=== PATIENT | male | born 1950 | race Caucasian/White ===

== ENCOUNTER 2024-12-30 10:34 | Emergency (ER) | payer OTHER ==
--- OUTSIDE RECORDS SUMMARY | 2024-12-30 10:38 | XMS REPORT | Continuity of Care Document ---
Author Name Unknown Address [address] [facility] [address] [place] [address] [facility] Address [address] [facility] [address] [place] [address] Care Team Providers Care Pitch Filler Name Role Phone KAROLINA LANG Primary Care Physician Unavailab Ryan Santamaria Attending Clinician Unavailable Warren Briggs MD Attending Clinician [phone] WARREN BRIGGS Attending Clinician Unavailable Min Olmedo DO Attending Clinician [phone] Jacque Rhodes MD Attending Clinician [phone] JACQUE RHODES Attending Clinician Unavailable MIN OLMEDO Admitting Clinician Unavailable Payers Payer Name Policy Type Policy Number Effective Date Expirati on Date Source MEDICARE NOVITAS [id number] [facility] AETNA C1 [id number] [facility] AETNA C1 [id number] [facility] MEDICARE NOVITAS MB [id number] [facility] MEDICARE NOVITAS MB [id number] [facility] AETNA C1 [id number] [facility] Problems Condition Name Condition Details Condition Category Status Onset Date Resolution Date Last Treatment Date Treating Clinician Comments Source No known active problems No known active problems Disease [facility] [id number] Ureterolit hiasis Problem Active [facility] Kidney stone Kidney stones Problem Active [facility] Allergies, Adverse Reactions, Alerts Allergy Name Allergy Type Status Severity Reaction(s) Onset Date Inactive Date Treating Clinician Comments Source NO KNOWN ALLERGIE S Drug Class Active [facility] Social History Social Habit Start Date Stop Date Quantity Comments Source Exposure to SARS-CoV-2 (event) Unable to assess [facility] History of Tobacco Use Never Smoker [facility] Sex Assigned At [facility] Smoking Status Start Date Stop Date Source Never Smoker [facility] Unknown if ever smoked [facility] Medications Ordered Medication Name Filled Medication Name Start Date Stop Date Current Medication? Ordering Clinician Indication Dosage Frequency Signature (SIG) Comments Components Source iohexol (OMNIPAQUE 350 BULK-100 mL) injection 100 mL 2019-05 22:45: 00 02-17 22:35 :00 No 100mL 100 mL, Intravenou s, ONCE, 1 dose, 02/18/20 at 1745, Routine [facility] proMETHazin e (PHENERGAN) 12.5 mg in NaCl 0.9% (NS) 50 mL piggyback 2019-05 22:00: 00 02-17 20:53 :00 No 12.5mg 12.5 mg, IV Piggyback, ONCE, 1 dose, 02/18/20 at 1700, 50 mL [facility] metoclopram cris HCl (REGLAN) injection 10 mg 2019-05 22:00: 00 02-17 20:53 :00 No 10mg 10 mg, Slow IV Push, ONCE, 1 dose, 02/18/20 at 1700, [facility] meclizine (TRAVEL-EAS E (MECLIZINE) ) tablet 25 mg 2019-05 21:30: 00 02-17 23:01 :00 No 25mg 25 mg, Oral, ONCE, 1 dose, 02[facility]18[facility]20 [facility]30[facility] proM[facility]az[facility] (PHENERGAN) 12.5 mg in NaCl 0.9% (NS) 50 mL piggyback 2019-05 21:15: 00 02-17 21:15 :00 No 12.5mg 12.5 mg, IV Piggyback, ONCE, 1 dose, 02/18/20 at 1615, 50 mL [facility] meclizine 25 mg tablet 2019-05 00:00: 00 Yes [id number] 25mg Take 1 tablet by mouth every 6 (six) hours. [facility] proMETHazin e 25 mg tablet 2019-05 00:00: 00 Yes [id number] 25mg Take 1 tablet by mouth every 6 (six) hours as needed for Nausea and Vomiting (N/V). [facility] pioglitazon e 30 mg tablet 09-29 03:06: 49 Yes 30mg Take 30 mg by mouth daily. [facility] triamterene -hydrochlor othiazide 37.5-25 mg per capsule 09-29 03:06: 49 Yes 1{capsu le} Take 1 capsule by mouth every morning. [facility] metFORMIN 1,000 mg tablet 09-29 03:06: 49 Yes 1000mg Take 1,000 mg by mouth 2 (two) times daily with meals. [facility] levothyroxi ne sodium (LEVOTHROID ORAL) 09-29 03:06: 49 Yes 88mg Take 88 mg by mouth. [facility] FENOFIBRATE ORAL 09-29 03:06: 49 Yes 54mg Take 54 mg by mouth. [facility] amLODIPine 5 mg tablet 09-29 03:06: 49 Yes 5mg Take 5 mg by mouth daily. [facility] benazepriL 20 mg tablet 09-29 03:06: 49 Yes 20mg Take 20 mg by mouth daily. [facility] gabapentin 300 mg capsule 09-29 03:06: 49 Yes 300mg Take 300 mg by mouth 3 (three) times daily. [facility] insulin NPH human isophane (NOVOLIN N SC) 09-29 03:06: 49 Yes 45U inject 45 Units under the skin. Indication s: subcutaneo us twice daily [facility] insulin regular, human (NOVOLIN R INJECTION) 09-29 03:06: 49 Yes Inject as directed. Indication s: INJECT 12 UNITS subcutaneo us before breakfast and 20 units before dinner [facility] iohexol (OMNIPAQUE 350 BULK-150 mL) injection 120 mL 09-29 00:15: 00 09-28 23:56 :00 No 120mL 120 mL, Intravenou s, ONCE, 1 dose, [facility] 09/29/19 at 1915, Routine [facility] ondansetron (ZOFRAN (PF)) injection 4 mg 09-29 00:00: 00 09-28 22:45 :00 No 4mg 4 mg, Slow IV Push, ONCE, 1 dose, [facility] 09/29/19 at 1900, JESUS [facility] tamsulosin 0.4 mg 24 hr capsule 09-28 00:00: 00 Yes [id number] .4mg Take 1 capsule by mouth at bedtime. [facility] ketorolac 10 mg tablet 09-28 00:00: 00 Yes [id number] 10mg Take 1 tablet by mouth every 6 (six) hours as needed for Pain (scale 7-10). [facility] ondansetron (ZOFRAN) 4 mg tablet 09-28 00:00: 00 Yes [id number] 4mg Take 1 tablet by mouth every 8 (eight) hours as needed for Nausea and Vomiting (N/V). [facility] Pioglitazon e HCl 30 MG Pioglitazon e HCl 30 MG No 1{table t} QD Pioglitazo ne HCl 30 MG Fenofibrate 54 MG Fenofibrate 54 MG No 1{table t_with_ food} QD Fenofibrat e 54 MG Benazepril HCl 20 MG Benazepril HCl 20 MG No 1{table t} QD Benazepril HCl 20 MG Novolin R 100 UNIT/ML Novolin R 100 UNIT/ML No Novolin R 100 UNIT/ML Metformin HCl 1000 MG Metformin HCl 1000 MG No 1{table t_with_ a_meal} QD Metformin HCl 1000 MG Triamterene -HCTZ 37.5-25 MG Triamterene -HCTZ 37.5-25 MG No 1{table t_in_th e_morni ng} QD Triamteren e-HCTZ 37.5-25 MG Levothyroxi ne Sodium 88 MCG Levothyroxi ne Sodium 88 MCG No QD Levothyrox ine Sodium 88 MCG Novolin N 100 UNIT/ML Novolin N 100 UNIT/ML No Novolin N 100 UNIT/ML Amlodipine Besylate 5 MG Amlodipine Besylate 5 MG No 1{table t} QD Amlodipine Besylate 5 MG Vital Signs Vital Name Observation Time Observation Value Comments S ource height 2020-03-05 09:30:00 72 [in_i] Commo n [facility] weight 2020-03-05 09:30:00 313.0 [lb_av] Co mmon [facility] temperature 2020-03-05 09:30:00 98.3 [degF] Com mon [facility] bmi 2020-03-05 09:30:00 42.45 kg/m2 Comm on [facility] oximetry 2020-03-05 09:30:00 99 % Commo n [facility] blood pressure systolic 2020-03-05 09:30:00 142 mm[Hg] [facility] blood pressure diastolic 2020-03-05 09:30:00 63 mm[Hg] [facility] Heart rate 2020-02-18 23:00:00 85 /min [facility] Respiratory rate 2020-02-18 23:00:00 18 /min [facility] Oxygen saturation in Arterial blood by Pulse oximetry 2020-02-18 23:00:00 98 /min [facility] Systolic blood pressure 2020-02-18 23:00:00 161 mm[Hg] [facility] Diastolic blood pressure 2020-02-18 23:00:00 71 mm[Hg] [facility] Body weight 2020-02-18 19:53:00 129 kg [facility] BMI 2020-02-18 19:53:00 38.57 kg/m2 [facility] Body temperature 2020-02-18 19:51:00 36.83 [place] [facility] Body height 2020-02-18 19:51:00 182.9 cm [facility] Heart rate 2020-02-18 23:00:00 85 /min [facility] Respiratory rate 2020-02-18 23:00:00 18 /min [facility] Oxygen saturation in Arterial blood by Pulse oximetry 2020-02-18 23:00:00 98 /min [facility] Systolic blood pressure 2020-02-18 23:00:00 161 mm[Hg] [facility] Diastolic blood pressure 2020-02-18 23:00:00 71 mm[Hg] [facility] Body weight 2020-02-18 19:53:00 129 kg [facility] BMI 2020-02-18 19:53:00 38.57 kg/m2 [facility] Body temperature 2020-02-18 19:51:00 36.83 [place] [facility] Body height 2020-02-18 19:51:00 182.9 cm [facility] Systolic blood pressure 2019-09-30 03:00:00 161 mm[Hg] [facility] Diastolic blood pressure 2019-09-30 03:00:00 71 mm[Hg] [facility] Heart rate 2019-09-30 03:00:00 81 /min [facility] Respiratory rate 2019-09-30 03:00:00 18 /min [facility] Oxygen saturation in Arterial blood by Pulse oximetry 2019-09-30 03:00:00 99 /min [facility] Body temperature 2019-09-29 22:10:00 35.72 [place] [facility] Body weight 2019-09-29 22:10:00 129.275 kg [facility] Systolic blood pressure 2019-09-30 03:00:00 161 mm[Hg] [facility] Diastolic blood pressure 2019-09-30 03:00:00 71 mm[Hg] [facility] Heart rate 2019-09-30 03:00:00 81 /min [facility] Respiratory rate 2019-09-30 03:00:00 18 /min [facility] Oxygen saturation in Arterial blood by Pulse oximetry 2019-09-30 03:00:00 99 /min [facility] Body temperature 2019-09-29 22:10:00 35.72 [place] [facility] Body weight 2019-09-29 22:10:00 129.275 kg [facility] Procedures Procedure Date / Time Performed Performing Clinician Source URINALYSIS 2020-02-18 23:12:00 Warren Birggs [facility] CT ANGIOGRAM HEAD 2020-02-18 22:39:38 Warren rBiggs [facility] CT ANGIOGRAM NECK 2020-02-18 22:39:38 Warren Briggs [facility] CT HEAD WO CONTRAST 2020-02-18 21:52:44 Jung Briggs [facility] MAGNESIUM 2020-02-18 20:01:00 [facility] TROPONIN I 2020-02-18 20:01:00 Warren Briggs [facility] COMP. METABOLIC PANEL ([id number]) 2020-02-18 20:01:00 Warren Briggs [facility] CBC WITH DIFF 2020-02-18 20:01:00 Warrne Briggs [facility] PROTHROMBIN TIME / INR 2020-02-18 20:01:00 Rao Briggs [facility] ACTIVATED PARTIAL THRMPLAS TANIYA 2020-02-18 20:01:00 Warren Briggs [facility] N-TERMINAL PRO-BNP 2020-02-18 20:01:00 Warren Briggs [facility] POCT GLUCOSE (AUTOMATED) 2020-02-18 19:57:00 Warren Briggs [facility] URINALYSIS 2019-09-30 01:04:00 Jacque Rhodes [facility] CT ABDOMEN PELVIS W CONTRAST 2019-09-30 00:01:46 Min Olmedo [facility] CT HEAD WO CONTRAST 2019-09-30 00:01:15 Amelia Olmedo [facility] LIPASE 2019-09-29 22:56:00 [facility] TROPONIN I 2019-09-29 22:56:00 Min Olmedo [facility] COMP. METABOLIC PANEL ([id number]) 2019-09-29 22:56[facility]00 [facility]ENTIAL 2019-09-29 22:56:00 Phil Olmedo [facility] PROTHROMBIN TIME / INR 2019-09-29 22:56:00 Kaveh isaias [facility] ACTIVATED PARTIAL THRMPLAS TANIYA 2019-09-29 22:56:00 [facility] COVID-[facility] (PCR MOLECULAR TESTING) 2019-09-29 22:56:00 [facility] EKG-12 LEAD 2019-09-29 22:51:36 [facility] Encounters Start Date/Time End Date/Time Encounter Type Admission Type Attending [facility] Care Department Encounter ID Source 2021-06-05 13:46:31 Outpatient Ryan Madden [facility] [id number] [facility] 2021-06-05 11:58:42 Outpatient [facility] [id number] [facility] 2024-11-01 08:00:00 2024-11-01 08:00:00 Outpatient S[facility] SFA [id number] Leandro May Jay 2024-10-13 11:50:05 2024-10-13 11:50:05 Outpatient SFA SFA [id number] Leandro May Jay 2024-07-27 10:04:39 2024-07-27 10:04:39 Outpatient SFA SFA [id number] Leandro May Jay 2024-07-15 07:58:17 2024-07-15 07:58:17 Outpatient SFA SFA [id number] Leandro May Jay 2024-05-19 11:23:39 2024-05-19 11:23:39 Outpatient SFA SFA [id number] Leandro May Jay 2024-04-18 08:35:17 2024-04-18 08:35:17 Outpatient SFA SFA [id number] Leandro May Jay 2024-01-22 07:41:48 2024-01-22 07:41:48 Outpatient SFA SFA [id number] Leandro Thompson 2024-01-18 08:27:02 2024-01-18 08:27:02 Outpatient SFA SFA [id number] Leandro Thompson 2023-10-21 08:08:16 2023-10-21 08:08:16 Outpatient SFA SFA [id number] Leandro Thompson 2023-05-18 07:46:53 2023-05-18 07:46:53 Outpatient SFA SFA [id number] Leandro Thompson 2023-02-11 07:33:46 2023-02-11 07:33:46 Outpatient SFA SFA [id number] Leadnro Thompson 2023-02-10 09:32:01 2023-02-10 09:32:01 Outpatient SFA SFA [id number] Leandro Thompson 2022-09-26 07:21:59 2022-09-26 07:21:59 Outpatient SFA SFA [id number] Leandro Thompson 2022-09-24 07:50:47 2022-09-24 07:50:47 Outpatient SFA SFA [id number] Leandro Thompson 2020-03-15 00:00:00 2020-03-15 00:00:00 (TEL) STLMLC STLMLC [id number] [facility] 2020-03-05 00:00:00 2020-03-05 00:00:00 OFFICE VISIT NEW PT LEVEL 2 STLMLC STLMLC [id number] [facility] 2020-03-05 00:00:00 2020-03-05 00:00:00 (TEL) STLMLC STLMLC [id number] [facility] 2020-02-18 14:51:00 2020-02-18 19:13:00 Emergency [facility] [id number] 2020-02-18 14:51:00 2020-02-18 19:13:00 Emergency [facility] [id number] [facility] 2020-02-18 14:51:00 2020-02-18 14:51:00 Emergency X WARREN BRIGGS [facility] ERT [id number] [facility] 2019-09-29 17:10:13 2019-09-30 01:14:00 Emergency Min Olmedo [place] [facility] [id number] 2019-09-29 17:10:13 2019-09-30 01:14:00 Emergency X JACQUE RHODES [facility] ERT [id number] [facility] 2019-09-29 17:10:13 2019-09-30 01:14:00 Emergency Min Olmedo [place] [facility] [id number] [facility] Results Test Description Test Time Test Comments Results Result Co mments Source [facility]00* Test Item Value Reference Range Interpretation Comme nts APPEARANCE (test code = 7741227085) Clear Clear COLOR (test code = 3399755312) Yellow Yellow PH (test code = 2526348270) 4.8-8.0 SP GRAVITY (test code = 5765809535) 1.003-1.030 H GLU U QUAL (test code = 1219376813) 500 mg/dL Normal A BLOOD (test code = 5075128789) Negative Negative KETONES (test code = 9851035803) 5 mg/dL Negative A PROTEIN (test code = 2887-8) Negative Negative UROBILIN (test code = 8928803179) Normal Normal BILIRUBIN (test code = 0047816124) Negative Negative NITRITE (test code = 0662810903) Negative Negative LEUK YOLANDA (test code = 2961994042) Negative Negative RBC/HPF (test code = 8211650491) See_Comment [Automated messa [employer]lyte Software] The system which generated this result transmitted reference range: 0 - 3 HPF. The reference range was not used to interpret this result as normal/abnormal. WBC/HPF (test code = 5076270141) See_Comment [Automated messa [employer]] The system which generated this result transmitted reference range: 0 - 5 HPF. The reference range was not used to interpret this result as normal/abnormal. BACTERIA (test code = 7627489899) Few Negative A SPERM (test code = 2939187918) See_Comment [Automated messa [employer]ly[employer]] The system which generated this result transmitted reference range: <=1 HPF. The reference range was not used to interpret this result as normal/abnormal. Lab Interpretation (test code = 25765-9) Abnormal [facility] [id number] 23:00:52No aneurysm or high-grade stenosis is present in the intracranial orcervical vesselsCT ANGIOGRAM HEAD, CT ANGIOGRAM NECK HISTORY: Male 69 years Dizziness, non-specific COMPARISON: CT head dated 02/18/2020 TECHNIQUE: Routine CTA head and neck were performed following theadministration of 100 mL IV Omnipaque. FINDINGS: CTA head: The PICA origin is visualized bilaterally. The basilar artery is normal incaliber. The superior cerebellar arteries are patent. The posteriorcerebral arteries are patent.No sizable posterior communicating arteriesare visualized. The distal cervical, petrous, cavernous and supraclinoid internal carotidartery segments are patent. The anterior and middle cerebral arteries arepatent. Multifocal mild and moderate narrowing are present in the anteriorand middle cerebral arteries. An anterior communicating artery is present. CTA NECK: The left vertebral artery arises from the aortic arch. The arch and archvessel origins are patent. The innominate and subclavian arteries arepatent. The common carotid arteries are patent. Mild atherosclerotic calcificationsin the carotid bulbs result in no significant luminal narrowing. Thecervical internal carotid arteries are tortuous but patent. The vertebralarteries are patent from their origins through the vertebrobasilarjunct ion. The right vertebral artery is mildly dominant. [facility], Radiant Results Inft User - 02/18/2020 6:02 PM CDTCT ANGIOGRAM HEAD, CT ANGIOGRAM NECKHISTORY: Male 69 years Dizziness, non-specific COMPARISON: CT head dated 02/18/2020TECHNIQUE: Routine CTA head and neck were performed following theadministration of 100 mL IV Omnipaque.FINDINGS:CTA head:The PICA origin is visualized bilaterally. The basilar artery is normal incaliber. The superior cerebellar arteries are patent. The posteriorcerebral arteries are patent. No sizable posterior communicating arteriesare visualized.The distal cervical, petrous, cavernous and supraclinoid internal carotidartery segments are patent. The anterior and middle cerebral arteries arepatent. Multifocal mild and moderate narrowing are present in the anteriorand middle cerebral arteries. An anterior communicating artery is present.CTA NECK:The left vertebral artery arises from the aortic arch. The arch and archvessel origins are patent. The innominate and subclavian arteries arepatent.The common carotid arteries are patent. Mild atherosclerotic calcificationsin the carotid bulbs result in no significant luminal narrowing. Thecervical internal carotid arteries are tortuous but patent. The vertebralarteries are patent from their origins through the verte brobasilarjunction. The right vertebral artery is mildly dominant.IMPRESSIONNo aneurysm or high-grade stenosis is present in the intracranial orcervical vesselsUnWhite Rock Medical CenterCT ANGIOGRAM [id number] 23:00:52No aneurysm or high-grade stenosis is present in the intracranial orcervical vesselsCT ANGIOGRAM HEAD, CT ANGIOGRAM NECK HISTORY: Male 69 years Dizziness, non-specific COMPARISON: CT head dated 02/18/2020 TECHNIQUE: Routine CTA head and neck were performed following theadministration of 100 mL IV Omnipaque. FINDINGS: CTA head: The PICA origin is visualized bilaterally. The basilar artery is normal incaliber. The superior cerebellar arteries are patent. The posteriorcerebral arteries are patent.No sizable posterior communicating arteriesare visualized. The distal cervical, petrous, cavernous and supraclinoid internal carotidartery segments are patent. The anterior and middle cerebral arteries arepatent. Multifocal mild and moderate narrowing are present in the anteriorand middle cerebral arteries. An anterior communicating artery is present. CTA NECK: The left vertebral artery arises from the aortic arch. The arch and archvessel origins are patent. The innominate and subclavian arteries arepatent. The common carotid arteries are patent. Mild atherosclerotic calcificationsin the carotid bulbs result in no significant luminal narrowing. Thecervical internal carotid arteries are tortuous but patent. The vertebralarteries are patent from their origins through the vertebrobasilarjunct ion. The right vertebral artery is mildly dominant. [facility], Radiant Results Inft User - 02/18/2020 6:02 PM CDTCT ANGIOGRAM HEAD, CT ANGIOGRAM NECKHISTORY: Male 69 years Dizziness, non-specific COMPARISON: CT head dated 02/18/2020TECHNIQUE: Routine CTA head and neck were performed following theadministration of 100 mL IV Omnipaque.FINDINGS:CTA head:The PICA origin is visualized bilaterally. The basilar artery is normal incaliber. The superior cerebellar arteries are patent. The posteriorcerebral arteries are patent. No sizable posterior communicating arteriesare visualized.The distal cervical, petrous, cavernous and supraclinoid internal carotidartery segments are patent. The anterior and middle cerebral arteries arepatent. Multifocal mild and moderate narrowing are present in the anteriorand middle cerebral arteries. An anterior communicating artery is present.CTA NECK:The left vertebral artery arises from the aortic arch. The arch and archvessel origins are patent. The innominate and subclavian arteries arepatent.The common carotid arteries are patent. Mild atherosclerotic calcificationsin the carotid bulbs result in no significant luminal narrowing. Thecervical internal carotid arteries are tortuous but patent. The vertebralarteries are patent from their origins through the verte brobasilarjunction. The right vertebral artery is mildly dominant.IMPRESSIONNo aneurysm or high-grade stenosis is present in the intracranial orcervical vesselsUnWhite Rock Medical CenterCT HEAD WO [id number] 22:58:35 No acute intracranial abnormality. Preliminary Report Dictated by Resident: César Luna MD., have reviewed this study and agree withthe above report.CT HEAD WO CONTRAST HISTORY: Dizziness, persistent/recurrent, cardiac or vascular causesuspected COMPARISON: 09/29/2019 TECHNIQUE: Contiguous axial CT images of the head were obtained without theuse of intravenous contrast. Coronal and sagittal reformats were provided. FINDINGS: The ventricles and cerebral sulci are prominent in caliber andconfiguration consistent with cerebral volume loss. No hydrocephalus,midline shift or pathological extra-axial fluid collection is present. Thebasal cisterns are unremarkable. There is no acute intracranial hemorrhage or significant mass effect. Noparenchymal attenuation abnormality. The bell-white matter differentiationis preserved. Intracranial atherosclerosis. The mastoid air cells and paranasal air sinuses are clear. The calvariumand central skull base are unremarkable. [facility], Radiant Results Inft User - 02/18/2020 5:59 PM CDTCT HEAD WO CONTRASTHISTORY: Dizziness, persistent/recurrent, cardiac or vascular causesuspected COMPARISON: 09/29/2019TECHNIQUE: Contiguous axial CT images of the head were obtained without theuse of intravenous contrast. Coronal and sagittal reformats were provided.FINDINGS:The ventricles and cerebral sulci are prominent in caliber andconfiguration consistent with cerebral volume loss. No hydrocephalus,midline shift or pathologicalextra-axial fluid collection is present. Thebasal cisterns are unremarkable.There is no acute intracranial hemorrhage or significant mass effect. Noparenchymal attenuation abnormality. The bell-whitematter differentiationis preserved. Intracranial atherosclerosis.The mastoid air cells and paranasal air sinuses are clear. The calvariumand central skull base are unremarkable.IMPRESSIONNo acute intracranial abnormality.Preliminary Report Dictated by Resident: Urvashi Haney, César Peña MD., have reviewed this study and agree withthe above report.[facility]:15[facility]00* Test Item Value Reference Range Interpretation Comme [facility] APTT Patient (test code = 3173-2) See_Comment [Automated message] The system which generated this result transmitted reference range: 23 - 38 Seconds. The reference range was not used to interpret this result as normal/abnormal. NEO (test code = NEO) The [facility] patient population mean normal value for aPTT is 30 seconds. Lab Interpretation (test code = 48601-3) Normal [facility] HospitalProth[facility] (PT) / [id number] 21:13:00 * Test Item Value Reference Range Interpretation Comme [facility] PROTIME PATIENT (test code = 5964-2) See_Comment [Automated [employer]] The system which generated this result transmitted reference range: 12.0 - 14.7 Seconds. The reference range was not used to interpret this result as normal/abnormal. INR (test code = 6301-6) Normal INR <1.1; Warfarin Therapeutic range 2.0 to 3.0 or 2.5 to 3.5, depending upon the indications. Lab Interpretation (test code = 40883-2) Normal [facility] HospitalTroponin [id number] 20:49:00* Test Item Value Reference Range Interpretation Comme nts TROPONIN I (test code = 7580267319) <0.012 See_Comment [Automated message] The system which generated this result transmitted reference range: <=0.034 ng/mL. The reference range was not used to interpret this result as normal/abnormal. NEO (test code = NEO) Equal or Less than 0.034 ng/ml---Normal ?Note: Cardiac troponin begins to rise 3-4 hours after the onset of ischemia. Repeat in 4-6 hours if the sample was drawn within 3-4 hours of the onset of the symptom and found normal. Between 0.035 and 0.120 ng/mL--- Borderline. Questionable myocardial injury or necrosis ? ?Note: Serial measurement may be necessary to confirm or exclude the diagnosis of myocardial injury or necrosis; Clinical correlation (symptoms, EKGs, imaging studies, and others) required; Repeat in 4-6 hours if clinically indicated. ? Equal or Higher than 0.121 ng/mL---Abnormal. Myocardial Injury or Necrosis Likely ? Biotin has been reported to cause a negative bias, interpret results relative to patient's use of biotin. ? Lab Interpretation (test code = 49575-5) Normal [facility] HospitalCOMP[facility]OLIC PANEL ([id number])2020-02-18 20:48:00* Test Item Value Reference Range Interpretation Comme nts NA (test code = 0487135931) 138 mmol/L 135-145 K (test code = 8192731445) 3.2 mmol/L 3.5-5 L CL (test code = 3190889598) 100 mmol/L 98-108 CO2 TOTAL (test code = 5424321456) 25 mmol/L 23-31 AGAP (test code = 9137229453) 2-16 BUN (test code = 2511606564) 26 mg/dL 7-23 H GLUCOSE (test code = 5256209523) 227 mg/dL 70-110 H CREATININE (test code = 9450870625) 1.20 mg/dL 0.6-1.25 TOTAL BILI (test code = 1962161781) 0.9 mg/dL 0.1-1.1 CALCIUM (test code = 2350120839) 10.6 mg/dL 8.6-10.6 T PROTEIN (test code = 8328749874) 7.7 g/dL 6.3-8.2 ALBUMIN (test code = 0038754186) 4.4 g/dL 3.5-5 ALK PHOS (test code = 7579000878) 74 U/L 34-122 ALTv (test code = 1742-6) 31 U/L 5-50 AST(SGOT) (test code = 2586565804) 34 U/L 13-40 eGFR Calculation (Non-) (test code = 8184199462) mL/min/1.73m2 eGFR Calculation () (test code = 9609587852) mL/min/1.73m2 NEO (test code = NEO) Association of Glomerular Filtration Rate (GFR) and Staging of Kidney Disease* + --+ --+ ------+| GFR (mL/min/1.73 m2) ?| With Kidney Damage ?| ?Without Kidney Damage+ --------+ --------+ +| ?>90 ?| ?Stage one ?| ? Normal ?+ ---+ ---+ -------+| ?60-89 ?| ?Stage two ?| ? Decreased GFR ? + --+ --+ ------+| ?30-59 ?| ?Stage three ?| ? Stage three ? + --+ --+ ------+| ?15-29 ?| ?Stage four ? | ? Stage four ?+ ---+ ---+ -------+| ?<15 (or dialysis) ? ?| ?Stage five ? | ? Stage five ?+ ---+ ---+ -------+ *Each stage assumes the associated GFR level has been in effect for at least three months. ?Stages 1 to 5, with or without kidney disease, indicate chronic kidney disease. Notes: Determination of stages one and two (with eGFR >59mL/min/1.73 m2) requires estimation of kidney damage for at least three months as defined by structural or functional abnormalities of the kidney, manifested by either:Pathological abnormalities or Markers of kidney damage (including abnormalities in the composition of the blood or urine or abnormalities in imaging tests). Lab Interpretation (test code = 56028-3) Abnormal [facility] HospitalN-TERMINAL [id number] 20:46:00* Test Item Value Reference Range Interpretation Comme nts NT-proBNP (test code = 7123296781) 133 pg/mL See_Comment H [Automated message] The system which generated this result transmitted reference range: <=125. The reference range was not used to interpret this result as normal/abnormal. NEO (test code = NEO) Biotin has been reported to cause a negative bias, interpret results relative to patient's use of biotin. Lab Interpretation (test code = 15854-0) Abnormal [facility] HospitalCBC with [id number] 20:39:00* Test Item Value Reference Range Interpretation Comme nts WBC (test code = 6690-2) See_Comment H [Automated [employer]] The system which generated this result transmitted reference range: 4.20 - 10.70 10*3/?L. The reference range was not used to interpret this result as normal/abnormal. RBC (test code = 789-8) See_Comment [Automated [employer]] The system which generated this result transmitted reference range: 4.26 - 5.52 10*6/?L. The reference range was not used to interpret this result as normal/abnormal. HGB (test code = 718-7) 14.6 g/dL 12.2-16.4 HCT (test code = 4544-3) 44.8 % 38.4-49.3 MCV (test code = 787-2) 88.0 fL 81.7-95.6 MCH (test code = 785-6) 28.7 pg 26.1-32.7 MCHC (test code = 786-4) 32.6 g/dL 31.2-35 RDW-SD (test code = 64073-7) 44.4 fL 38.5-51.6 RDW-CV (test code = 788-0) 13.7 % 12.1-15.4 PLT (test code = 777-3) See_Comment [Automated messa ge] The system which generated this result transmitted reference range: 150 - 328 10*3/?L. The reference range was not used to interpret this result as normal/abnormal. MPV (test code = 14442-9) 11.1 fL 9.8-13 NRBC/100 WBC (test code = 7132535586) See_Comment [Automated [employer] ssage] The system which generated this result transmitted reference range: 0.0 - 10.0 /100 WBCs. The reference range was not used to interpret this result as normal/abnormal. NRBC x10^3 (test code = 5498255510) <0.01 See_Comment [Automated messa ge] The system which generated this result transmitted reference range: 10*3/?L. The reference range was not used to interpret this result as normal/abnormal. GRAN MAT (NEUT) % (test code = 770-8) 55.3 % IMM GRAN % (test code = 9322008297) 1.70 % LYMPH % (test code = 736-9) 32.4 % MONO % (test code = 5905-5) 7.9 % EOS % (test code = 713-8) 2.0 % BASO % (test code = 706-2) 0.7 % GRAN MAT x10^3(ANC) (test code = 7161657556) 6.91 10*3/uL 1.99-6.95 IMM GRAN x10^3 (test code = 1612095191) 0.21 10*3/uL 0-0.06 H LYMPH x10^3 (test code = 731-0) 4.05 10*3/uL 1.09-3.23 H MONO x10^3 (test code = 742-7) 0.99 10*3/uL 0.36-1.02 EOS x10^3 (test code = 711-2) 0.25 10*3/uL 0.06-0.53 BASO x10^3 (test code = 704-7) 0.09 10*3/uL 0.01-0.09 Lab Interpretation (test code = 79875-7) [facility] Test Item Value Reference Range Interpretation Comme nts MAGNESIUM (test code = 2651497193) 1.7 mg/dL 1.7-2.4 Lab Interpretation (test cod e = 73948-0) Normal [facility] HospitalCT [facility]EN PELVIS W [id number] 02:47:401. ?Proximal right ureteral stone measures 3 mm and results in mildperiureteral/perinephric inflammation. No significant hydronephrosis. 2. ?Questionable right lower lobe consolidative opacity, likely in part dueto atelectasis. However, a focus of infection cannot be excluded.Interstitial lung disease is another possibility. CT follow-up isrecommended in 6-8 weeks. Preliminary Report Dictated by Resident: Matthew Burt MD., have reviewed this study and agree with the abovereport.EXAM: CT ABDOMEN/PELVIS WITH CONTRAST HISTORY: ?Abd pain, acute, generalized ? COMPARISON: None DOSE: 1242 mGycm TECHNIQUE AND FINDINGS: Contiguous axial imaging from the level of the lungbases through the pubic symphysis was performed after the uncomplicatedadministration of ?intravenous Omnipaque contrast. Coronal and sagittalreconstructions were obtained. ?Auto mA and/or iterative reconstruc tionwere used to reduce radiation dose. FINDINGS: LOWER THORAX: Subcentimeter left lower lobe calcific granuloma. Right lower lobe dependent atelectasis with associated groundglass,subpleural reticulation, mild focal bronchiectasis, and questionableconsolidative opacity on 2:24. Severe coronary calcifications. Nonenlarged calcified hilar lymph nodes,likely from prior granulomatous infection. LIVER: Scattered hepatic hypodensities which measure up to 2.2 cm withsimple fluid attenuation, likely cysts. Other subcentimeter hypodensitiesare too small to characterize. Normal contour. GALLBLADDER AND BILIARY TREE: No biliary ductal dilation. ?No gallbladderwall thickening. SPLEEN: No splenomegaly.PANCREAS: No ductal dilation or masses. ADRENAL GLANDS: No adrenal nodules. KIDNEYS: 3 mm right proximal ureteral stone, resulting in mildperiureteral/perinephric inflammation. PERITONEUM AND RETROPERITONEUM: No free air or fluid. LYMPH NODES: No lymphadenopathy. GI TRACT: An ovoid calcific densityis noted along the anterior distalesophagus and appears to be intramural; this could be related to a smallleiomyoma. No dilation or wall thickening. Normal appendix. PELVIS/BLADDER: Unremarkable. VESSELS: Scattered calcified atherosclerotic plaque. BONES AND SOFT TISSUES: No suspicious lytic or sclerotic bony lesions.Periumbilical soft tissue stranding, possibly from prior injections. [facility], Radiant Results Inft User - 09/29/2019 9:48 PM CDTEXAM: CT ABDOMEN/PELVIS WITH CONTRASTHISTORY: Abd pain,acute, generalized COMPARISON: NoneDOSE: 1242 mGycmTECHNIQUE AND FINDINGS: Contiguous axial imagingfrom the level of the lungbases through the pubic symphysis was performed after the uncomplicatedadministration of intravenous Omnipaque contrast. Coronal and sagittalreconstructions were obtained. Auto mA and/or iterative reconstructionwere used to reduce radiation dose.FINDINGS:LOWER THORAX: Subce ntimeter left lower lobe calcific granuloma.Right lower lobe dependent atelectasis with associated groundglass,subpleural reticulation, mild focal bronchiectasis, and questionableconsolidative opacity on 2:24.Severe coronary calcifications. Nonenlarged calcified hilar lymph nodes,likely from prior g ranulomatous infection.LIVER: Scattered hepatic hypodensities which measure up to 2.2 cm withsimplefluid attenuation, likely cysts. Other subcentimeter hypodensitiesare too small to characterize. Normal contour.GALLBLADDER AND BILIARY TREE: No biliary ductal dilation. No gallbladderwall thickening.SPLEEN: No splenomegaly.PANCREAS: No ductal dilation or masses.ADRENAL GLANDS: No adrenal nodules.KIDNEYS: 3 mm right proximal ureteral stone, resulting in mildperiureteral/perinephric inflammation.PERITONEUM AND RETROPERITONEUM: No free air or fluid.LYMPH NODES: No lymphadenopathy.GI TRACT: An ovoid calcific density is noted along the anterior distalesophagus and appears to be intramural; this could be related to a smallleiomyoma. No dilation or wall thickening. Normal appendix.PELVIS/BLADDER:Unremarkable.VESSELS: Scattered calcified atherosclerotic plaque.BONES AND SOFT TISSUES: No suspicious lytic or sclerotic bony lesions.Periumbilical soft tissue stranding, possibly from prior injections.IMPRESSION1. Proximal right ureteral stone measures 3 mm and results in mildperiureteral/perinephric inflammation. No significant hydronephrosis.2. Questionable right lower lobe consolidative opacity, likely in part dueto atelectasis. However, a focus of infection cannot be excluded.Interstitiallung disease is another possibility. CT follow-up isrecommended in 6-8 weeks.Preliminary Report Dictated by Resident: Karolina Dodson, Matthew Torres MD., have reviewed this study and agree with the abovereport.[facility] HospitalURINALYSIS2020-[facility] 02:23:00* Test Item Value Reference Range Interpretation Comme nts APPEARANCE (test code = 5397194357) Clear Clear COLOR (test code = 9341821646) Yellow Yellow PH (test code = 0624471843) 4.8-8.0 SP GRAVITY (test code = 6629499888) 1.003-1.030 H GLU U QUAL (test code = 0663400624) Normal Normal BLOOD (test code = 0810887421) Negative Negative KETONES (test code = 7996698664) Negative Negative PROTEIN (test code = 2887-8) Negative Negative UROBILIN (test code = 2700432507) Normal Normal BILIRUBIN (test code = 1695217901) Negative Negative NITRITE (test code = 3220282123) Negative Negative LEUK YOLANDA (test code = 6707768788) Negative Negative RBC/HPF (test code = 3564261859) See_Comment [WhenSoon] The system which generated this result transmitted reference range: 0 - 3 HPF. The reference range was not used to interpret this result as normal/abnormal. WBC/HPF (test code = 9652576685) See_Comment [WhenSoon] The system which generated this result transmitted reference range: 0 - 5 HPF. The reference range was not used to interpret this result as normal/abnormal. BACTERIA (test code = 6712213458) Few Negative A HYAL CAST (test code = 4381600594) See_Comment [WhenSoon] The system which generated this result transmitted reference range: <=2 LPF. The reference range was not used to interpret this result as normal/abnormal. Lab Interpretation (test code = 95787-6) Abnormal [facility] HospitalCT HEAD WO [id number] 00:13:04No acute findings. HISTORY:Dizziness, persistent/recurrent, cardiac or vascular causesuspected TECHNIQUE: Noncontrast head CT was performed. COMPARISON:None. FINDINGS: The ventricles and sulci are appropriate for patient's age. There is no midline shift. The basal cisterns are preserved. No largevascular territory infarction, intracranial hemorrhage or mass effect isseen. The extracranial tissuesdemonstrate no acute findings. [facility], Radiant Results Inft User - 09/29/2019 7:14 PM CDTHISTORY:Dizziness, persistent/recurrent, cardiac or vascular causesuspected TECHNIQUE: Noncontrast head CT was pe rformed.COMPARISON:None.FINDINGS:The ventricles and sulci are appropriate for patient's age.There is no midline shift. The basal cisterns are preserved. No largevascular territory infarction, intracranial hemorrhage or mass effect isseen.The extracranial tissues demonstrate no acute findings.IMPRESSIONNo acute findings.[facility] HospitalCORONAVIRUS COVID-19 TESTING 2019-09-29 23:48:00* Test Item Value Reference Range Interpretation Comme nts SARS-CoV-2 Rapid ID NOW (test code = 22283-0) Not Detected Not Detected NEO (test code = NEO) ID NOW COVID-19 As say is an isothermal nucleic acid amplification test intended for the qualitative detection of nucleic acid from SARS-CoV-2 viral RNA in nasopharyngeal (BUSINESS SYSTEMS TECHNICIAN) specimens. It is used under Emergency Use Authorization (EUA) by FDA. The limit of detection (LOD) of the assay is 125 Genome Equivalents/mL. A positive result is indicative of the presence of SARS-CoV-2 RNA. ?Clinical correlation with patient history and other diagnostic information is necessary to determine patient infection status. A negative (Not Detected) result does not preclude SARS-CoV-2 infection. In patients with clinical symptoms and other tests that are consistent with SARS-CoV-2 infection, negative results should be treated as presumptive negative and a new specimen should be tested with alternative PCR molecular test. Invalid: Please collect a new specimen for repeat patient testing if clinically indicated. Lab Interpretation (test code = 78504-4) Normal [facility] HospitalTROPONIN [id number] 23:35:00* Test Item Value Reference Range Interpretation Comme nts TROPONIN I (test code = 0345775320) <0.012 See_Comment [Automated message] The system which generated this result transmitted reference range: <=0.034 ng/mL. The reference range was not used to interpret this result as normal/abnormal. NEO (test code = NEO) Equal or Less than 0.034 ng/ml---Normal ?Note: Cardiac troponin begins to rise 3-4 hours after the onset of ischemia. Repeat in 4-6 hours if the sample was drawn within 3-4 hours of the onset of the symptom and found normal. Between 0.035 and 0.120 ng/mL--- Borderline. Questionable myocardial injury or necrosis ? ?Note: Serial measurement may be necessary to confirm or exclude the diagnosis of myocardial injury or necrosis; Clinical correlation (symptoms, EKGs, imaging studies, and others) required; Repeat in 4-6 hours if clinically indicated. ? Equal or Higher than 0.121 ng/mL---Abnormal. Myocardial Injury or Necrosis Likely ? Biotin has been reported to cause a negative bias, interpret results relative to patient's use of biotin. ? Lab Interpretation (test code = 84108-4) Normal [facility] HospitalCOMP. METABOLIC PANEL ([id number])2019-09-29 23:24:00* Test Item Value Reference Range Interpretation Comme nts NA (test code = 1355780668) 140 mmol/L 135-145 K (test code = 8375339437) 3.5 mmol/L 3.5-5 CL (test code = 2493015998) 102 mmol/L 98-108 CO2 TOTAL (test code = 1679649736) 28 mmol/L 23-31 AGAP (test code = 6888875130) 2-16 BUN (test code = 1520646376) 20 mg/dL 7-23 GLUCOSE (test code = 2229427036) 135 mg/dL 70-110 H CREATININE (test code = 7404308239) 1.18 mg/dL 0.6-1.25 TOTAL BILI (test code = 8080782083) 0.4 mg/dL 0.1-1.1 CALCIUM (test code = 1435946411) 9.9 mg/dL 8.6-10.6 T PROTEIN (test code = 4923621501) 7.6 g/dL 6.3-8.2 ALBUMIN (test code = 8903148645) 4.7 g/dL 3.5-5 ALK PHOS (test code = 2006418866) 68 U/L 34-122 ALTv (test code = 1742-6) 26 U/L 5-50 AST(SGOT) (test code = 7087160650) 33 U/L 13-40 eGFR Calculation (Non-) (test code = 4827725691) mL/min/1.73m2 eGFR Calculation () (test code = 2847807794) mL/min/1.73m2 NEO (test code = NEO) Association of Glomerular Filtration Rate (GFR) and Staging of Kidney Disease* + --+ --+ ------+| GFR (mL/min/1.73 m2) ?| With Kidney Damage ?| ?Without Kidney Damage+ --------+ --------+ +| ?>90 ?| ?Stage one ?| ? Normal ?+ ---+ ---+ -------+| ?60-89 ?| ?Stage two ?| ? Decreased GFR ? + --+ --+ ------+| ?30-59 ?| ?Stage three ?| ? Stage three ? + --+ --+ ------+| ?15-29 ?| ?Stage four ? | ? Stage four ?+ ---+ ---+ -------+| ?<15 (or dialysis) ? ?| ?Stage five ? | ? Stage five ?+ ---+ ---+ -------+ *Each stage assumes the associated GFR level has been in effect for at least three months. ?Stages 1 to 5, with or without kidney disease, indicate chronic kidney disease. Notes: Determination of stages one and two (with eGFR >59mL/min/1.73 m2) requires estimation of kidney damage for at least three months as defined by structural or functional abnormalities of the kidney, manifested by either:Pathological abnormalities or Markers of kidney damage (including abnormalities in the composition of the blood or urine or abnormalities in imaging tests). Lab Interpretation (test code = 35048-7) [facility]normal [facility] BranchLIPASE, [id number] 23:23:00* Test Item Value Reference Range Interpretation Comme nts LIPASE (test code = 7171627600) 62 U/L 0-220 Lab Interpretation (test cod e = 35522-6) Normal [facility] HospitalaPTT2020-05-21 23:20:00* Test Item Value Reference Range Interpretation Comme [facility] APTT Patient (test code = 3173-2) See_Comment [Automated message] The system which generated this result transmitted reference range: 23 - 38 Seconds. The reference range was not used to interpret this result as normal/abnormal. NEO (test code = NEO) The [facility] patient population mean normal value for aPTT is 30 seconds. Lab Interpretation (test code = 66134-7) Normal [facility] HospitalPROTHROMBIN TIME / [id number] 23:18:00* Test Item Value Reference Range Interpretation Comme [facility] PROTIME PATIENT (test code = 5964-2) See_Comment [Automated messa ge] The system which generated this result transmitted reference range: 12.0 - 14.7 Seconds. The reference range was not used to interpret this result as normal/abnormal. INR (test code = 6301-6) Normal INR <1.1; Warfarin Therapeutic range 2.0 to 3.0 or 2.5 to 3.5, depending upon the indications. Lab Interpretation (test code = 60916-6) Normal [facility] HospitalCBC WITH [id number] 23:10:00* Test Item Value Reference Range Interpretation Comme [facility] WBC (test code = 6690-2) See_Comment H [Automated message] The system which generated this result transmitted reference range: 4.20 - 10.70 10*3/?L. The reference range was not used to interpret this result as normal/abnormal. RBC (test code = 789-8) See_Comment [Automated message] The system which generated this result transmitted reference range: 4.26 - 5.52 10*6/?L. The reference range was not used to interpret this result as normal/abnormal. HGB (test code = 718-7) 14.6 g/dL 12.2-16.4 HCT (test code = 4544-3) 45.1 % 38.4-49.3 MCV (test code = 787-2) 89.0 fL 81.7-95.6 MCH (test code = 785-6) 28.8 pg 26.1-32.7 MCHC (test code = 786-4) 32.4 g/dL 31.2-35 RDW-SD (test code = 66281-0) 45.4 fL 38.5-51.6 RDW-CV (test code = 788-0) 14.1 % 12.1-15.4 PLT (test code = 777-3) See_Comment [Automated message] The system which generated this result transmitted reference range: 150 - 328 10*3/?L. The reference range was not used to interpret this result as normal/abnormal. MPV (test code = 96241-4) 10.7 fL 9.8-13 NRBC/100 WBC (test code = 0213245761) See_Comment [Automated message] The system which generated this result transmitted reference range: 0.0 - 10.0 /100 WBCs. The reference range was not used to interpret this result as normal/abnormal. NRBC x10^3 (test code = 9484937465) <0.01 See_Comment [Automated message] The system which generated this result transmitted reference range: 10*3/?L. The reference range was not used to interpret this result as normal/abnormal. GRAN MAT (NEUT) % (test code = 770-8) 75.0 % IMM GRAN % (test code = 9401270633) 1.10 % LYMPH % (test code = 736-9) 16.0 % MONO % (test code = 5905-5) 6.2 % EOS % (test code = 713-8) 1.0 % BASO % (test code = 706-2) 0.7 % GRAN MAT x10^3(ANC) (test code = 4721328642) 10.24 10*3/uL 1.99-6.95 H IMM GRAN x10^3 (test code = 5174660837) 0.15 10*3/uL 0-0.06 H LYMPH x10^3 (test code = 731-0) 2.19 10*3/uL 1.09-3.23 MONO x10^3 (test code = 742-7) 0.84 10*3/uL 0.36-1.02 EOS x10^3 (test code = 711-2) 0.14 10*3/uL 0.06-0.53 BASO x10^3 (test code = 704-7) 0.09 10*3/uL 0.01-0.09 Lab Interpretation (test code = 69213-2) [facility]"
[2024-12-30] MEDS ORDERED: NA CHLORIDE 0.9% 1,000 ML ONE (11:16)
[2024-12-30 11:38] LABS: Absolute Lymphocytes (CBC) 2.3 K/uL (0.7-4.9); Hematocrit 43.2 % (39.6-49.0); Hemoglobin 14.4 g/dL (13.6-17.9); MCH 28.5 pg (27.0-35.0); MCHC 33.3 g/dL (32.0-36.0); MCV 85.6 fL (80-100); MPV 8.2 fL (7.6-11.3); Nucleated RBC Absolute Count 0.0 (0-0); Nucleated Red Blood Cells % 0.0 % (0-0); RBC Red Blood Cell Count 5.05 M/uL (4.33-5.43); White Blood Count 19.20 thou/uL (4.3-10.9)
--- NOTE | 2024-12-30 12:02 | RAD REPORT ---
EXAMINATION: CT Stone Protocol CLINICAL INDICATION: Male, 74 years old. HEMATURIA TECHNIQUE: CT abdomen and pelvis was performed, without IV contrast, as per department protocol. Axia l, sagittal and coronal reconstructions were obtained. One or more of the following dose reduction techniques were used: Automated exposure control, adjustment of the mA and kV according to the patien t size, and iterative reconstruction. Unless otherwise specified, incidental findings do not require dedicated imaging follow-up. COMPARISON: No prior exam. FINDINGS: The lack of intravenous contrast limits the sensitivity of this exam for evaluation of solid visceral organs, vascular structures, and retroperitoneum. LOWER CHEST: The visualized lung bases are clear. LIVER: Normal in size and contour. Heterogeneous left liver lobe hypoattenuating 1.8 cm lesion. No ot her suspicious focal lesion. BILIARY SYSTEM: No suspicious abnormalities. SPLEEN: Normal size. No focal lesion. PANCREAS: No mass, ductal dilation, or pablo-pancreatic fluid. ADRENALS: Normal; no mass. KIDNEYS AND URETERS: Normal size and contour. No hydronephrosis. URINARY BLADDER: Slightly decompressed which limits evaluation. Wall prominence versus heterogeneous hyperdensity within the bladder lumen, could reflect ongoing inflammatory changes or hemorrhagic content within the gallbladder. Mild pericystic fat stranding. GASTROINTESTINAL TRACT: No evidence of bowel obstruction, significant free fluid, free air or abscess . APPENDIX: Normal appendix. LYMPH NODES: No lymphadenopathy. MUSCULOSKELETAL: No acute or suspicious osseous abnormality. ADDITIONAL FINDINGS: None. IMPRESSION: Pericystic fat stranding and bladder wall prominence versus hemorrhagic content. Findings could relat e to infectious or inflammatory cystitis. Please correlate with urinalysis results. Incidentally noted left liver lobe 1.8 cm lesion, not well characterized consider additional evaluati on by ultrasound to ascertain solid nature.
[2024-12-30 12:06] LABS: Sqamous Epithelial None Seen /HPF (None Seen); Urine Micro Reflex YN NO BILL MICROSCOPIC
[2024-12-30] MEDS ORDERED: NA CHLORIDE 0.9% 50 ML ONE (12:09)
[2024-12-30] MEDS ORDERED: CEFTRIAXONE 1000 MG/VIAL ONE (12:09)
[2024-12-30 12:36] LABS: ALT/SGPT 24 U/L (16-61); Albumin 3.3 g/dL (3.4-5.0); Albumin/Globulin Ratio 1.0 (1.1-1.8); Alkaline Phosphatase 105 U/L (45-117); Anion Gap 9.2 mEq/L (5.0-15.0); BUN Blood Urea Nitrogen 15 mg/dL (7-18); Globulin 3.4 g/dL (2.3-3.5); Glucose Level 305 mg/dL (74-106); Potassium 4.2 mEq/L (3.5-5.1)
[2024-12-30 12:37] LABS: AST/SGOT < 10 U/L (15-37)
--- NOTE | 2024-12-30 13:37 | EDPHYS ---
Physician Documentation [facility] Name: Antonio Hagan Age: 74 yrs Sex: Male : 1950 Arrival Date: 12/30/2024 Time: 10:34 Bed 7 Private MD: ED Physician Jb Madden HPI: 12/30 14:29 This 74 yrs old Male presents to ER via Ambulatory with complaints of Blood dr5 in Urine. 14:29 Onset: The symptoms/episode began/occurred acutely. Patient states 4-year-old male with dr5 history of diabetes, hyperlipidemia, hypertension, hypothyroidism, vertigo coming in with acute hematuria that started this morning. Patient reports that he has frequency as well as dysuria when urinating. Patient reports that yesterday he was out golfing and did not stay hydrated enough. Patient denies chest pain, shortness of breath, abdominal pain, nausea, vomiting, diarrhea. Patient reports that he has have an enlarged prostate.. Historical: - Allergies: 11:16 No Known Allergies; me1 - PMHx: 11:16 diabetes mellitus; Hypercholesterolemia; Hypertensive disorder; Hypothyroidism; me1 Vertigo; vascular headache (Vertigo); - PSHx: 11:16 ankle surgery (Vertigo); me1 - Immunization history:: Adult Immunizations up to date. - Infectious Disease History:: Denies. - Social history:: Smoking status: Patient denies any tobacco usage or history of. ROS: 14:29 Constitutional: as per hpi dr5 Exam: 14:29 Constitutional: This is a well developed, well nourished patient who is awake, alert, dr5 and in no acute distress. Head/Face: Normocephalic, atraumatic. Eyes: Pupils equal round and reactive to light, extra-ocular motions intact. Lids and lashes normal. Conjunctiva and sclera are non-icteric and not injected. Cornea within normal limits. Periorbital areas with no swelling, redness, or edema. Neck: Trachea midline, no thyromegaly or masses palpated, and no cervical lymphadenopathy. Supple, full range of motion without nuchal rigidity, or vertebral point tenderness. No Meningismus. Chest/axilla: Normal chest wall appearance and motion. Nontender with no deformity. No lesions are appreciated. Cardiovascular: Regular rate and rhythm with a normal S1 and S2. Normal PMI, no JVD. No pulse deficits. Respiratory: Lungs have equal breath sounds bilaterally, clear to auscultation. No rales, rhonchi or wheezes noted. No increased work of breathing, no retractions or nasal flaring. Abdomen/GI: Soft, non-tender, non-distended Back: No spinal tenderness. No costovertebral tenderness. Full range of motion. Skin: Warm, dry with normal turgor. Normal color with no rashes, no lesions, and no evidence of cellulitis. MS/ Extremity: Pulses equal, no cyanosis. Neurovascular intact. Full, normal range of motion. Neuro: Awake and alert, GCS 15, oriented to person, place, time, and situation. Cranial nerves II-XII grossly intact. Motor strength 5/5 in all extremities. Sensory grossly intact. Cerebellar exam normal. Normal gait. Vital Signs: 11:15 BP 139 / 64; Pulse 79; Resp 18; Temp 98.6; Pulse Ox 100% ; Weight 108.86 kg; Height 6 me1 ft. 0 in. ; 12:00 BP 134 / 71; Pulse 74; Resp 18 S; Pulse Ox 100% on R/A; aa5 11:15 Body Mass Index 32.55 (108.86 kg, 182.88 cm) me1 Procedures: 14:29 Ultrasound: Type: Bladder Scanner Pre and Post Void, Post Residual of approximately dr5 180-200 mls. MDM: 10:38 Medical Screening Exam initiated dr5 14:29 Differential diagnosis: viral Infection, bacterial infection, UTI, Nephrolithiasis, dr5 Bladder Cancer. Data reviewed: vital signs, nurses notes, lab test result(s), CBC, white blood cell count, hemoglobin, hematocrit, platelets, electrolytes, sodium, potassium, chloride, serum bicarbonate, BUN, creatinine, serum glucose, urinalysis, hematuria, radiologic studies, CT scan. Consideration of Admission/Observation Escalation of care including admission/observation considered. Admission considered patient found to have obstructing kidney stone.. I considered the following discharge prescriptions or medication management in the emergency department I discussed and recommended Over The Counter medications, Medications were administered in the Emergency Department. See MAR. Historians other than the Patient: Spouse/Significant Other: at bedside who is a retired ADON. Care significantly affected by the following chronic conditions: BPH, diabetes, hyperlipidemia, hypertension, hypothyroidism, vertigo. Care significantly affected by the following Social Determinants of Health: Poor access to healthcare and/or lack of insurance, Poor access to transportation, Problems related to employment. Counseling: I had a detailed discussion with the patient and/or guardian regarding the historical points, exam findings, and any diagnostic results supporting the discharge/admit diagnosis, the presence of at least one elevated blood pressure reading (>120/80) during this emergency department visit, lab results, radiology results, the need for outpatient follow up, for definitive care, a urologist, to return to the emergency department if symptoms worsen or persist or if there are any questions or concerns that arise at home. Medication response: Rocephin. Response to treatment: the patient's symptoms have markedly improved after treatment, Urine color has improved.. Special discussion: I have referred the patient to see his PCP for further evaluation of high blood pressure. I discussed with the patient/guardian in detail that at this point there is no indication for admission to the hospital. It is understood, however, that if the symptoms persist or worsen the patient needs to return immediately for re-evaluation. Based on the history and exam findings, there is no indication for further emergent testing or inpatient evaluation. I discussed with the patient/guardian the need to see the urologist for further evaluation of the symptoms. ED course: Discussed possible need for Coyle catheter. Had long detailed discussion with and patient regarding Coyle catheter and they report they would not like one at this time. states that she will see Dr. Le on Thursday for further management. Will give patient all results and CT scans to take with them. Antibiotics given in ER as well as a prescription for antibiotics as well. Patient and patient are agreeable plan and strict ER precautions given. All question answered. Strict ER precautions given. 12/30 11:16 Order name: CBC with Diff; Complete Time: 11:52 dr5 12/30 11:16 Order name: CMP; Complete Time: 12:38 dr5 12/30 11:48 Order name: Urine Microscopic Only; Complete Time: 12:08 EDOK 12/30 12:25 Order name: Urine Culture EDOK 12/30 11:16 Order name: CT Stone Protocol; Complete Time: 12:04 dr5 12/30 11:16 Order name: IV Saline Lock; Complete Time: 11:24 dr5 12/30 11:16 Order name: Labs collected and sent; Complete Time: 11:24 dr5 12/30 11:44 Order name: Labs - recollect needed: recollect green and purple tubes; Complete Time: eb 12:06 12/30 12:36 Order name: Bladder Scanner; Complete Time: 13:18 dr5 Administered Medications: 11:35 Drug: NS 0.9% IV 1000 ml IV at 1 bolus Per protocol; to be given as a bolus over 60 aa5 minutes Route: IV; Rate: 1 bolus; Site: right antecubital; 12:35 Follow up: IV Status: Completed infusion; IV Intake: 1000ml aa5 12:23 Drug: Rocephin IV 1 grams IV at per protocol once; Given slow IV push per pharmacy ap3 instructions Route: IV; Rate: per protocol; Site: right antecubital; 12:53 Follow up: Response: No adverse reaction; IV Status: Completed infusion aa5 Disposition Summary: 12/30/24 13:36 Discharge Ordered Notes: Location: Home dr5 Condition: Stable dr5 Diagnosis - UTI/ Urinary tract infection, site not specified dr5 - Acute cystitis with hematuria dr5 Followup: dr5 - With: Emergency Department - When: As needed - Reason: Worsening of condition Followup: dr5 - With: Hernesto Le MD - When: 1 - 2 days - Reason: Recheck today's complaints, Continuance of care, Re-evaluation by your physician Discharge Instructions: - Discharge Summary Sheet dr5 - Urinary Tract Infection, Adult, [id number] dr5 Forms: - Medication Reconciliation Form dr5 - Antibiotic Education dr5 - Patient Portal Instructions dr5 - Leadership Thank You Letter dr5 Prescriptions: - cefpodoxime 200 mg Oral tablet - take 1 tablet ORAL route every 12 hours for 10 days with food; 20 tablet; dr5 Refills: 0, Product Selection Permitted Signatures: Dispatcher [employer] EDMS Leatha Perez, RN RN aa5 lAicia Parker RN RN ap3 Mena Lucero Michelle, RN RN me1 Jim Murcia, SHAISTA-C SHAISTA-Cdr5 Corrections: (The following items were deleted from the chart) 11:48 11:17 UA Rfx Brant Cult if indicated+[id number].LAB.BRZ ordered. EDMS EDMS
--- NOTE | 2024-12-30 13:37 | ER ---
Nurse's Notes [facility] Name: Antonio Hagan Age: 74 yrs Sex: Male : 1950 Arrival Date: 12/30/2024 Time: 10:34 Bed 7 Private MD: Diagnosis: UTI/ Urinary tract infection, site not specified;Acute cystitis with hematuria Presentation: 12/30 11:15 Chief complaint: Patient states: blood in urine, pain with urination and urinary me1 frequency that started this morning. Denies fever. Coronavirus screen: Vaccine status: Patient reports receiving the 2nd dose of the covid vaccine. Ebola Screen: No symptoms or risks identified at this time. Initial Sepsis Screen: Does the patient meet any 2 criteria? No. Patient's initial sepsis screen is negative. Does the patient have a suspected source of infection? No. Patient's initial sepsis screen is negative. Risk Assessment: Do you want to hurt yourself or someone else? Patient reports no desire to harm self or others. Onset of symptoms was December 30, 2024 at 06:00. 11:15 Method Of Arrival: Ambulatory me1 11:15 Acuity: NOHEMY 3 me1 Historical: - Allergies: 11:16 No Known Allergies; me1 - PMHx: 11:16 diabetes mellitus; Hypercholesterolemia; Hypertensive disorder; Hypothyroidism; me1 Vertigo; vascular headache (Vertigo); - PSHx: 11:16 ankle surgery (Vertigo); me1 - Immunization history:: Adult Immunizations up to date. - Infectious Disease History:: Denies. - Social history:: Smoking status: Patient denies any tobacco usage or history of. Screenin:30 [facility] ED Fall Risk Assessment (Adult) History of falling in the last 3 months, aa5 including since admission No falls in past 3 months (0 pts) Confusion or Disorientation No (0 pts) Intoxicated or Sedated No (0 pts) Impaired Gait No (0 pts) Mobility Assist Device Used No (0 pt) Altered Elimination No (0 pt) Score/Fall Risk Level 0 - 2 = Low Risk Oriented to surroundings, Maintained a safe environment, Educated pt \T\ family on fall prevention, incl call for assistance when getting out of bed, Assessed \T\ reinforced patient's understanding of fall precautions. Abuse screen: Denies threats or abuse. Nutritional screening: No deficits noted. Tuberculosis screening: No symptoms or risk factors identified. Assessment: 11:20 General: Appears comfortable, Behavior is calm, cooperative. Pain: Denies pain. Neuro: aa5 Level of Consciousness is awake, alert, obeys commands, Oriented to person, place, time, situation. Cardiovascular: Patient's skin is warm and dry. Respiratory: Airway is patent Respiratory effort is even, unlabored, Respiratory pattern is regular, symmetrical. GI: No signs and/or symptoms were reported involving the gastrointestinal system. : Reports hematuria and burning with urination. EENT: No signs and/or symptoms were reported regarding the EENT system. Derm: Skin is pink, warm \T\ dry. Musculoskeletal: Range of motion: intact in all extremities. 12:00 Reassessment: Patient is alert, oriented x 3, equal unlabored respirations, skin aa5 warm/dry/pink. 13:40 Reassessment: Patient is alert, oriented x 3, equal unlabored respirations, skin aa5 warm/dry/pink. Patient denies pain at this time. Vital Signs: 11:15 BP 139 / 64; Pulse 79; Resp 18; Temp 98.6; Pulse Ox 100% ; Weight 108.86 kg; Height 6 me1 ft. 0 in. ; 12:00 BP 134 / 71; Pulse 74; Resp 18 S; Pulse Ox 100% on R/A; aa5 11:15 Body Mass Index 32.55 (108.86 kg, 182.88 cm) me1 ED Course: 10:37 Patient arrived in ED. cj3 10:38 Jim Murcia [facility]C [facility]. dr5 10:38 Jb Madden MD is Attending Physician. dr5 11:16 Triage completed. me1 11:16 Arm band placed on Patient placed in an exam room. me1 11:17 Leatha Perez, CORTEZ is Primary Nurse. aa5 11:20 Patient has correct armband on for positive identification. Bed in low position. Call aa5 light in reach. Side rails up X2. Adult w/ patient. Pulse ox on. NIBP on. 11:24 Initial lab(s) drawn, by laboratory miller, sent to lab. Inserted saline lock: 18 gauge in right ts3 antecubital area, using aseptic technique. Blood collected. Flushed with 10 mL NS. 11:24 Urine collected: clean catch specimen, sent to lab. ts3 11:31 CT Stone Protocol In Process Unspecified. EDMS 12:28 No provider procedures requiring assistance completed. aa5 13:35 Hernesto Le MD is Referral Physician. dr5 13:40 IV discontinued, intact, bleeding controlled, No redness/swelling at site. Pressure aa5 dressing applied. Administered Medications: 11:35 Drug: NS 0.9% IV 1000 ml IV at 1 bolus Per protocol; to be given as a bolus over 60 aa5 minutes Route: IV; Rate: 1 bolus; Site: right antecubital; 12:35 Follow up: IV Status: Completed infusion; IV Intake: 1000ml aa5 12:23 Drug: Rocephin IV 1 grams IV at per protocol once; Given slow IV push per pharmacy ap3 instructions Route: IV; Rate: per protocol; Site: right antecubital; 12:53 Follow up: Response: No adverse reaction; IV Status: Completed infusion aa5 Medication: 12:27 VIS not applicable for this client. aa5 Intake: 12:35 IV: 1000ml; Total: 1000ml. aa5 13:14 Urine appers dark in color now, with no visible blood noted. aa5 13:17 Bladder scan completed post-void, TV:211mls, provider notified. aa5 Output: 13:14 Urine: 150ml (Voided); Total: 150ml. aa5 13:14 Urine appers dark in color now, with no visible blood noted. aa5 13:17 Bladder scan completed post-void, TV:211mls, provider notified. aa5 Outcome: 13:36 Discharge ordered by . dr5 13:40 Discharged to home ambulatory, with significant other, aa5 13:40 Condition: stable 13:40 Discharge instructions given to patient, significant other, Instructed on discharge instructions, follow up and referral plans. medication usage, Demonstrated understanding of instructions, follow-up care, medications, Prescriptions given X 1, 13:48 Patient left the ED. aa5 Signatures: Dispatcher [employer] EDMS Leatha Perez RN RN aa5 Alicia Parker RN RN ap3 Khalida Montalvo RN RN me1 Jim Murcia, COURT DEPUTY-C COURT DEPUTY-Cdr5 Alma Rand 3 Steff Braswell ts3 Corrections: (The following items were deleted from the chart) : 11:30 Patient has correct armband on for positive identification. Bed in low position. aa5 Call light in reach. Side rails up X2. Adult w/ patient. aa5 11:30 Pulse ox on. NIBP on. aa5 5 11:30 General: Appears comfortable, Behavior is calm, cooperative, [facility]30 Pain: Denies pain. aa5 [facility] 11:30 Neuro: Level of Consciousness is awake, alert, obeys commands, Oriented to aa5 person, place, time, situation, aa 11:30 Cardiovascular: Patient's skin is warm and dry. aa5 [facility] 11:30 Respiratory: Airway is patent Respiratory effort is even, unlabored, Respiratory aa pattern is regular, symmetrical, aa 11:30 GI: No signs and/or symptoms were reported involving the gastrointestinal system. aa aa 11:30 : Reports hematuria and burning with urination [facility] 11:30 EENT: No signs and/or symptoms were reported regarding the EENT system. aa5 aa 11:30 Derm: Skin is pink, warm \T\ dry. aa5 aa 11:30 Musculoskeletal: Range of motion: intact in all extremities, 5 [facility]
[2024-12-30 15:07] VITALS: TEMP 98.6; O2SAT 100
[2024-12-30 15:09] VITALS: BP 134/71
== END 2024-12-30 13:48 | disposition home or self-care (01) ==
LOC: ER 10:34
DX: N30.01 Acute cystitis with hematuria (principal)
CPT/HCPCS: 96365; 96361; 87088; 85025; 87086; 36415; 81015; 80053; 76377; 74176; 99284; J7030; J0696